=== PATIENT | male | born 1970 | race Caucasian/White ===

== ENCOUNTER 2023-01-19 10:00 | Outpatient (RCR) | payer SELFPAY, OTHER ==
--- NOTE | 2023-01-06 07:45 | HP.OTEVAL_ITS ---
Patient's Visit Information BALDEMAR PARIKH is a 52 year old M, referred to Occupational Therapy by [facility], with a diagnosis of rupture distal biceps tendon. Date of Evaluation: 01/05/23 Occupational Therapist: Lesley Rhodes, OTR/Jack, CHT - Subjective This 52 year old male was seen for OT eval with dx of right UE distal biceps rupture. 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 DOI November 30 2022. 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 Went to [facility] and was scheduled sx. DOS was Dec 17 2022. heading for sx on right rotator cuff sx will see January 21 for his shoulder. pt states right now he is feeling good and happy he had sx. pt is anxious to return to work. - ADLs Comments: pts assist as able due to pt right UE limited with NWB or lifting over 8oz. - ROM Elbow: right -30/120 left +3/145 Forearm: right supination 45/pronator 45 left WNL Wrist: right WNL left WNL ROM Comments: pt demo full functional grasp right and left - Strength Bill Recapitulation Clerk: right NT left 120# Lateral Pinch: right NT left 28# Tripod Pinch: right NT left 24# Strength Comments: will test right strength at later date - Sensation Sensation Comments: denies - Quick DASH-Disab of Arm,Shoulder& Hand Quick DASH Score: 55.0000 - Goals Goal:100% adherence to protocol: Yes Comment: Dr. Arias Distal Biceps repair protocol unless notified differently by Goal:Daily scar massage when approriate: Yes Goal:ROM equal to unaffected hand: Yes Goal:Bill Recapitulation Clerk/Pinch strength at least 75% of unaffected hand: Yes Goal:No pain with affected hand use: Yes Goal:Full use of affected hand in daily activities including: Yes - Rehabilitation General Assessment: pt arrives s/p 2 weeks and 5 day s/p from distal biceps tendon repair ( per pt end button) with long arm orthosis on. pt demo with newly healing structures and demo need for skilled OT services 1-2x week for 8 weeks. Today therapist ed. pt on cleaning orthosis, AAROM of elbow flexion keeping forearm in supination as tolerated , and AROM with elbow at 90* working on supination/pronation as tolerated. pt to continue with use of orthosis at all times except with ex. and hygiene. Therapist ed. pt on scar mtg. and shoulder ROM as tolerated. pt and pts demo understanding and agree to POC. Rehabilitation Potential: Excellent - Anticipated Interventions A/AAROM/PROM, Strengthening, Scar Care, Triggerpoint Release, Modalities, Orthoses, Joint Protection/Energy Conservation, Ergonomic Education, Fine Motor Coord/Andrea, Education re assistive Equipment, Education re Diagnosis, Home Program - Visit Plan Frequency: 1-2x /Week Duration: 2 Months TEXT: Thank you for the opportunity to evaluate your patient. For Medicare and Medicare HMO plans, please review the plan of care and approve it. It will need to be FAXED BACK to us at [phone] for Medicare purposes. Please let me know if there are questions or concerns regarding this plan of care. Physician Signature: Date:
--- NOTE | 2023-01-19 10:25 | OTREVAL_ITS ---
[facility], It has been my pleasure to treat BALDEMAR PARIKH over the last 2 visits for rupture distal biceps tendon. Please see the progress note below for an update on the occupational therapy plan of care! Subjective: pt arrives to 4 weeks and 5 days s/p from distal biceps tendon repair. pt denies pain. pt states he feels his elbow is doing well. wanting to see what next step is for shoulder Objective/Function: right elbow 0/140. right forearm supination WFL pronation pulling sensation. 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 pt doing well Plan Frequency: 1-2x /Week Duration: 2 Months Plan: will transition pt to strengthening at 8 weeks s/p. pt has been ed. on precautions to avoid injury or stress to the repair. pt demo understanding Goals - Goals Patient Goals: Regain Mobility, Decrease Pain, Return to Work, Use Hand/Wrist/Arm Normally Again Goal:100% adherence to protocol: Yes Goal:Daily scar massage when approriate: Yes Goal:ROM equal to unaffected hand: Yes Goal:Air Brake Tester/Pinch strength at least 75% of unaffected hand: Yes Goal:No pain with affected hand use: Yes Goal:Full use of affected hand in daily activities including: Yes Anticipated Interventions Anticipated Interventions: A/AAROM/PROM, Strengthening, Scar Care, Triggerpoint Release, Modalities, Orthoses, Joint Protection/Energy Conservation, Ergonomic Education, Fine Motor Coord/Andrea, Education re assistive Equipment, Education re Diagnosis, Home Program Please do not hesitate to contact me at [phone] by phone or if you have questions or concerns regarding this new plan of care! Sincerely, Lesley Rhodes, OTR/L, CHT
--- NOTE | 2023-03-31 10:46 | HP.OT.NRP ---
Patient Information Patient Information: BALDEMAR PARIKH was seen in my office for initial evaluation on 01/05/23. The following Plan of Care was established for this patient: POC Established Initial Frequency: 1-2x /Week Initial Duration: 2 Months Plan: will transition pt to strengthening at 8 weeks s/p pt has been ed. on precautions to avoid injury or stress to the repair. pt demo understanding Anticipated Interventions Anticipated Interventions: A/AAROM/PROM, Strengthening, Scar Care, Triggerpoint Release, Modalities, Orthoses, Joint Protection/Energy Conservation, Ergonomic Education, Fine Motor Coord/Andrea, Education re assistive Equipment, Education re Diagnosis and Home Program Last Seen Last Seen: This patient was last seen in our office 01/19/23. Pertinent comments regarding their Occupational therapy will appear below: pt was seen for 2 OT session. He was continuing with a HEP and at week 8 was to attend therapy to transition into PRE program. At this time pt has not scheduled further apts and is d/c at this time. At this point I will be discontinuing this patient from occupational therapy. I would be happy to see this patient again in the future if found appropriate by the physician. Thank you! Lesley Rhodes, OTR/L, CHT
== END 2023-01-19 19:00 | disposition home or self-care (01) ==
LOC: OT 10:00
DX: S46.011D Strain of muscle(s) and tendon(s) of the rotator cuff of right shoulder, subsequent encounter (principal); S46.211D Strain of muscle, fascia and tendon of other parts of biceps, right arm, subsequent encounter
CPT/HCPCS: 97110; 97166; 97530

== ENCOUNTER 2025-08-07 08:41 | Emergency (ER) | payer OTHER, SELFPAY ==
[2025-08-07 08:41] VITALS: BP 118/90; PULSE 77; RESP 18; TEMP 36.6; O2SAT 98; BMI 33.5
--- NOTE | 2025-08-07 09:02 | EKG12_ITS ---
Test Reason : Blood Pressure : */* mmHG Vent. Rate : 74 BPM Atrial Rate : 74 BPM P-R Int : 170 ms QRS Dur : 86 ms QT Int : 368 ms P-R-T Axes : 48 -4 9 degrees QTcB Int : 408 ms Normal sinus rhythm NORMAL EKG Confirmed by Rome Abdi ([id number]), managing editor MARCE BARRAGAN ([id number]) on 08/12/2025 9:05:47 AM Referred By: STUART Confirmed By: Rome Abdi
--- NOTE | 2025-08-07 09:02 | RAD_ITS ---
PROCEDURE: CHEST 1 VIEW (PORTABLE) 08/07/2025 REASON FOR EXAM: CHEST PAIN TECHNIQUE: Frontal view of the chest. FINDINGS: The lungs are clear. The cardiomediastinal silhouette appears unremarkable. No acute osseous abnormality. RAD/Chest 1 View (Portable) IMPRESSION: As above. Reading Location: [id number]
[2025-08-07] MEDS: Ketorolac 30 MG/ML Syringe IV (09:07)
--- NOTE | 2025-08-07 09:07 | EX.ED.DYSGE1 ---
HPI History of Present Illness Chief Complaint: Chest Pain Informant: patient and family Narrative Narrative: 55-year-old male presenting for the evaluation of chest pain. Patient states on Tuesday began to have a slight amount of discomfort in the left shoulder blade region. By Tuesday it was more noticeable extending up towards the neck and worse with certain movements of the neck and arm. He felt it radiating down towards the left elbow. He states that he was trying massage chair adjusting the back and seen a chiropractor. This morning around 0400 hrs. he found himself pacing the floors he was feeling pressure in the left side of his chest in addition to the pain in the back and the arm. States it felt more like gas but was not able to be relieved. He began to feel nauseated. He was worried that this could be cardiac in nature. He has had prior bilateral rotator cuff repairs. He denies any known trauma at this time. He denies any DVT PE risk factors or history. He denies any loss of sensation of the upper extremity or weakness of the musculature particularly in the medart operator of the fingers. [facility] Medical History Biceps muscle tear Home Medications ?Medication ?Instructions ?Recorded ?Last Taken ?Type cholecalciferol (vitamin D3) 10 10 mcg PO DAILY 08/26/23 Unknown History mcg (400 unit) capsule zinc sulfate 50 mg zinc (220 mg) 50 mg PO DAILY 08/26/23 Unknown History capsule (Zinc-220) cyclobenzaprine 10 mg tablet 10 mg PO TID PRN Muscle Spasm #15 08/07/25 Unknown Rx TABLETS Allergy/AdvReac Type Severity Reaction Status Date / Time No Known Allergies Allergy Verified 08/07/25 08:41 Surgical History History of cholecystectomy S/P ACL surgery S/P right rotator cuff repair Social History Smoking Status: Former smoker ROS ROS ED Constitutional Constitutional ED: Denies chills, fever(s) or weight loss Eyes Eyes: Denies change in vision or diplopia ENT ENT ED: Denies ear pain, rhinorrhea or sore throat Cardiovascular Cardiovascular: Reports chest pain; Denies orthopnea, palpitations or racing heartbeat Respiratory/Chest Respiratory/Chest: Denies cough, dyspnea or orthopnea Gastrointestinal Gastrointestinal: Denies abdominal pain, diarrhea, nausea or vomiting Genitourinary Genitourinary ED: Denies dysuria, hematuria or urinary frequency Musculoskeletal Musculoskeletal: Reports back pain and other Details: Left arm pain ; Denies arthralgias or myalgias Integumentary Denies abscess or rash Neurologic Neurologic: Denies headache(s), paresthesias or weakness Psychiatric Psychiatric: Denies anxiety, depression, suicidal ideation or suicidal thoughts Endocrine Endocrinology: Denies polydipsia, polyphagia or polyuria Allergic/Immunologic Allergic/Immunologic ED: Denies mouth swelling, tongue swelling or urticaria EXAM Physical Exam Const Vital Signs: 08/07/25 08:41 08/07/25 08:53 08/07/25 10:06 Temperature 97.8 F Temperature Source Temporal Pulse Rate 77 67 Respiratory Rate 18 17 Respiratory Effort Normal Non-Labored Respiratory Pattern Normal Blood Pressure 118/90 H 131/81 H Blood Pressure Mean 99 97 Pulse Ox 98 97 Oxygen Delivery Method Room Air Room Air 08/07/25 11:22 08/07/25 12:06 Temperature Temperature Source Pulse Rate 74 61 Respiratory Rate 12 12 Respiratory Effort Respiratory Pattern Blood Pressure 141/90 H 129/99 H Blood Pressure Mean 107 109 Pulse Ox 98 100 Oxygen Delivery Method Room Air Room Air Positive well nourished and well developed General Appearance ED: well developed HEENT Reports normocephalic, head/scalp atraumatic and moist mucous membranes Eyes PERRL and EOMs intact bilaterally Neck no lymphadenopathy, supple and no JVD Neck Narrative: Patient has tenderness in the trapezius muscle distribution left paracervical region extending down just lateral to the thoracic spine over towards the angle of the ribs in the scapular region. I do not appreciate a rash. Resp normal respiratory effort and clear to auscultation bilaterally Cardio regular rate, regular rhythm and no murmurs GI normal to inspection, nondistended, normoactive bowel sounds and non-tender Palpation: soft Back/Spine no CVA tenderness and normal ROM Back/Spine Narrative: See cervical exam Thoracic Spine / Upper Back: paraspinal muscle tenderness left Extremity normal to inspection General Extremety ED: Negative for edema General Extremity: Negative for edema Neuro oriented x3 and CN's II-XII intact bilaterally Neuro Narrative: Left upper extremity appears neurovascularly intact with specific testing of the radial ulnar and median nerves as well as deltoid region. Sensorium / Orientation: alert Motor Exam: strength 5/5 throughout Psych mental status grossly normal Mood & Affect: Negative for depressed or tearful Skin no rashes or lesions noted and no wounds MDM MDM MDM Narrative Medical decision making narrative: Differential diagnosis includes but not limited to acute coronary syndrome pneumothorax pulmonary embolism aortic dissection muscular spasm somatic rib dysfunction 2 sets of cardiac enzymes are less than 6. Hemoglobin 16.5. BMP is within normal limit except for glucose of 112. D-dimer 0.27. My independent interpretation of his chest x-ray is no acute process. EKG is nonischemic. Patient received a dose of Toradol. Clinically I wonder if this is trapezius muscle spasm given the area that the patient hurts seems to correlate with the anatomic distribution of the trapezius muscle. I do not see evidence of an acute chest emergency. Would recommend heat stretching massage I can write for some cyclobenzaprine. He asked if chiropractic medicine would be effective and I feel that this may be a reasonable choice for him to continue to try. Patient to return if worsening or concerns follow-up with primary care doctor if not improving History & Record Review Discussion w/independent historian: Patient and Family Lab Data Attestation: I reviewed the patient's lab results. Labs: Laboratory Results - last 24 hr 08/07/25 08/07/25 09:00 11:00 WBC 5.0 RBC 5.34 Hgb 16.5 Hct 45.6 MCV 85.4 MCH 30.9 MCHC 36.2 H RDW Std Deviation 40.1 RDW Coeff of Deepthi 13.0 Plt Count 180 MPV 9.6 Immature Gran % (Auto) 0.200 Neut % (Auto) 53.9 Lymph % (Auto) 36.1 [place] % (Auto) 8.0 Eos % (Auto) 1.4 Baso % (Auto) 0.4 Absolute Neuts (auto) 2.7 Absolute Lymphs (auto) 1.81 Nucleated RBC % 0 D-Dimer Quant (PE/DVT) 0.27 Sodium 140 Potassium 4.6 Chloride 104 Carbon Dioxide 27.4 Anion Gap 9 BUN 17 Creatinine 0.94 Estim Creat Clear Calc 103.77 Est GFR (MDRD) Non-Af 95 BUN/Creatinine Ratio 18.4 Glucose 112 H Calcium 10.0 Troponin T High Sens < 6 Troponin T Hi Sens 2 Hr < 6 Radiography Diagnostic Testing: Clinical Impression(s) from Imaging Studies Chest X-Ray 08/07/25 09:02 IMPRESSION: As above. Reading Location: [id number] EKG Initial EKG: Attestation: I personally reviewed and interpreted this EKG as follows: Comments: Normal sinus rhythm ventricular rate of 84 bpm Discharge Plan Triage Chief Complaint: Chest Pain ED Provider: Ortega Crenshaw Dx/Rx/DC Orders Clinical Impression: Chest pain, Trapezius muscle spasm, Somatic dysfunction of rib cage region Instructions: Muscle Spasm, ED Chest Pain, Noncardiac Prescriptions: New cyclobenzaprine 10 mg tablet 10 mg PO TID PRN (Reason: Muscle Spasm) Qty: 15 0RF No Action zinc sulfate [Zinc-220] 50 mg zinc (220 mg) capsule 50 mg PO DAILY cholecalciferol (vitamin D3) 10 mcg (400 unit) capsule 10 mcg PO DAILY Primary Care Provider: Vipul Ruvalcaba Referrals: Vipul Ruvalcaba MD [Primary Care Provider, Family Practice] - 1 Week if not improving Print Language: Pashto Disposition Disposition: Home, Self Care Discharge Date/Time: 08/07/25 12:33
[2025-08-07 09:10] LABS: Hematocrit 45.6 % (40-54); Hemoglobin 16.5 g/dL (13.0-16.5); Immature Granulocytes Count 0.010 X10^3/uL (0.0-0.0); Mean Corp Hgb Conc 36.2 g/dL (32-36); Mean Corpuscular Volume 85.4 fL (80-94); Mean Platelet Vol. 9.6 fl (6.2-12.0); NRBC Flagged by Analyzer 0 % (0-5); Platelet Count 180 K/mm3 (150-450); RBC Distribution Width CV 13.0 % (11.6-14.6); RBC Distribution Width SD 40.1 fl (35.1-43.9); Red Blood Count 5.34 M/mm3 (4.6-6.2); White Blood Count 5.0 K/mm3 (4.4-11.0)
[2025-08-07 09:32] LABS: Anion Gap 9 (7-18); BUN 17 mg/dL (4-19); BUN/Creat Ratio 18.4 RATIO (10-20); Calcium,Total 10.0 mg/dL (7.6-11.0); Carbon Dioxide 27.4 mmol/L (20.0-29.0); Chloride 104 mmol/L (96-106); Estimated Creatinine Clearance 103.77 ml/min (50-250); Glucose 112 mg/dL (70-99); Potassium 4.6 mmol/L (3.5-5.1); Troponin T High Sensitivity < 6 ng/L (<=22)
[2025-08-07 09:42] LABS: D-Dimer Quantitative (DVT/PE) 0.27 FEU/ug/m (0.27-0.49)
[2025-08-07 10:06] VITALS: BP 131/81; PULSE 67; RESP 17; O2SAT 97
[2025-08-07 11:22] VITALS: BP 141/90; PULSE 74; RESP 12; O2SAT 98
[2025-08-07 12:06] VITALS: BP 129/99; PULSE 61; RESP 12; O2SAT 100
[2025-08-07 12:06] LABS: Troponin T High Sens 2 HR < 6 ng/L (<=22)
[2025-08-07 12:32] VITALS: BP 129/99; PULSE 61; RESP 12; TEMP 36.7; O2SAT 100
== END 2025-08-07 12:33 | disposition home or self-care (01) ==
PROVIDERS: Emergency Provider Emergency Medicine; PCP Family Medicine; Visit Provider Emergency Medicine
DX: R07.89 Other chest pain (principal); M62.838 Other muscle spasm; R07.81 Pleurodynia; Z87.891 Personal history of nicotine dependence
CPT/HCPCS: 71045; 80048; 84484; 85025; 85379; 93005; 96374; 99284